=== PATIENT | female | born 1960 | race African-American/Black ===

== ENCOUNTER → 2016-09-05 20:03 | Outpatient (CLI) | payer OTHER | END | disposition home or self-care (01) | LOC: D.SLEEP 20:00 | DX: G47.33 Obstructive sleep apnea (adult) (pediatric) (principal) ==

== ENCOUNTER → 2016-09-18 19:58 | Outpatient (CLI) | payer OTHER | END | disposition home or self-care (01) | LOC: D.SLEEP 19:58 | DX: G47.33 Obstructive sleep apnea (adult) (pediatric) (principal) ==

== ENCOUNTER 2016-09-20 21:22 | Emergency (ER) | payer OTHER | END 2016-09-20 22:55 | disposition home or self-care (01) | LOC: D.ER 21:22 | DX: T78.3XXA Angioneurotic edema, initial encounter (principal); I10 Essential (primary) hypertension; N83.9 Noninflammatory disorder of ovary, fallopian tube and broad ligament, unspecified ==

== ENCOUNTER → 2017-09-25 12:48 | Outpatient (CLI) | payer OTHER | END | disposition home or self-care (01) | LOC: D.RAD 12:48 | DX: Z02.71 Encounter for disability determination (principal) ==

== ENCOUNTER 2017-12-20 15:42 | Emergency (ER) | payer MEDICAID, OTHER ==
[2017-12-20 16:34] LABS: BASOPHILS 0 % (0-2); EOSINOPHILS 0.1 % (0-7); HEMATOCRIT 40.4 % (36.0-48.0); HEMOGLOBIN 13.6 g/dL (12-16); IMMATURE GRANULOCYTES 0.3 % (0-5); LYMPHOCYTES 5.7 % (15-50); MCH 28.3 pg (26.0-34.0); MCHC 33.7 g/dL (31.0-37.0); MEAN PLATELET VOLUME 11.6 fL (7.4-10.4); MONOCYTES 5.4 % (2-11); NEUTROPHILS 88.5 % (40-80); PLATELET COUNT 178 10x3/uL (130-400); RBC 4.81 10x6/uL (4.00-5.40); RDW 14.1 % (11.5-14.5); WBC 7.4 10x3/uL (4.8-10.8)
[2017-12-20 16:46] LABS: APPEARANCE CLEAR (CLEAR); COLOR YELLOW (YELLOW)
[2017-12-20 16:47] LABS: BILIRUBIN 2+ (NEGATIVE); GLUCOSE NEGATIVE (NEGATIVE); KETONE NEGATIVE (NEGATIVE); NITRITE NEGATIVE (NEGATIVE); PROTEIN NEGATIVE (NEGATIVE); SPECIFIC GRAVITY 1.005 (1.005-1.020); UROBILINOGEN NORMAL (NORMAL)
[2017-12-20 16:49] LABS: WHITE CELLS - URINE OCC /hpf (0-5)
[2017-12-20 16:52] LABS: RED CELLS - URINE 0-5 /hpf (0-5)
[2017-12-20 16:55] LABS: ALBUMIN 3.2 g/dL (3.4-5.0); ANION GAP 9.8 mmol/L (8-16); BACTERIA FEW /hpf (NONE SEEN); BILIRUBIN - TOTAL 0.24 mg/dL (0.2-1.3); CALCIUM 8.9 mg/dL (8.5-10.1); CARBON DIOXIDE 32.7 mmol/L (21.0-32.0); POTASSIUM - SERUM 3.5 mmol/L (3.5-5.1); PROTEIN - SERUM 7.9 g/dL (6.4-8.2)
== END 2017-12-20 18:43 | disposition home or self-care (01) ==
LOC: D.ER 15:42
PROVIDERS: Emergency Medicine
DX: A08.4 Viral intestinal infection, unspecified (principal); I10 Essential (primary) hypertension

== ENCOUNTER 2018-03-14 14:29 | Emergency (ER) | payer OTHER ==
[~2018-03-14] VITALS: Ht 162.6 cm; Wt 112.7 kg
[2018-03-14 14:52] VITALS: Ht 162.6 cm; Wt 112.7 kg
[2018-03-14] MEDS ORDERED: GLUCOPHAGE500 MG PO (14:55)
[2018-03-14] MEDS ORDERED: HYDROCHLOROTHIA25 MG PO (14:56)
[2018-03-14] MEDS ORDERED: NIFEDIPINE ER30 MG PO (14:56)
[2018-03-14] MEDS ORDERED: ESTRACE2 MG PO (14:56)
[2018-03-14] MEDS ORDERED: NEURONTIN 300300 MG PO (14:57)
[2018-03-14] MEDS ORDERED: PROTONIX40 MG PO (14:57)
[2018-03-14] MEDS ORDERED: ASPIRIN81 MG PO (14:57)
[2018-03-14] MEDS ORDERED: NITROSTAT0.4 MG SL (14:58)
[2018-03-14] MEDS ORDERED: ZYLOPRIM100 MG PO (15:00)
[2018-03-14] MEDS ORDERED: MOBIC7.5 MG PO (15:00)
[2018-03-14] MEDS ORDERED: MYRBETRIQ50 MG PO (15:00)
[2018-03-14] MEDS ORDERED: POTASSIUM CHLO20 MEQ PO (15:01)
[2018-03-14 16:00] LABS: BASOPHILS 0.2 % (0-2); EOSINOPHILS 1.2 % (0-7); HEMATOCRIT 39.7 % (36.0-48.0); HEMOGLOBIN 13.1 g/dL (12-16); IMMATURE GRANULOCYTES 0.3 % (0-5); LYMPHOCYTES 34.7 % (15-50); MCH 27.7 pg (26.0-34.0); MCV 83.9 fL (80.0-100.0); MEAN PLATELET VOLUME 11.7 fL (7.4-10.4); MONOCYTES 10.1 % (2-11); NEUTROPHILS 53.5 % (40-80); PLATELET COUNT 205 10x3/uL (130-400); RBC 4.73 10x6/uL (4.00-5.40); RDW 14.6 % (11.5-14.5); WBC 5.8 10x3/uL (4.8-10.8)
[2018-03-14 16:10] LABS: ALBUMIN 3.4 g/dL (3.4-5.0); ALKALINE PHOSPHATASE 74 U/L (46-116); ALT (SGPT) 16 U/L (10-68); BILIRUBIN - TOTAL 0.24 mg/dL (0.2-1.3); CALC OSMOLALITY 282 mosm/kg (275-300); CALCIUM 8.9 mg/dL (8.5-10.1); CARBON DIOXIDE 30.3 mmol/L (21.0-32.0); CHLORIDE - SERUM 103 mmol/L (98-107); CREATININE - SERUM 0.9 mg/dL (0.6-1.3); GLUCOSE 92 mg/dL (74-106); POTASSIUM - SERUM 3.4 mmol/L (3.5-5.1); PROTEIN - SERUM 8.1 g/dL (6.4-8.2); SODIUM 142 mmol/L (136-145); UREA NITROGEN 12 mg/dL (7-18); eGFR NON AFRICAN AMERICAN 69 mL/min (90-120)
[2018-03-14 16:24] LABS: CKMB 0.6 U/L (0.0-3.6); TROPONIN-I < 0.017 ng/mL (0.000-0.060)
[2018-03-15 00:20] VITALS: BP 150/96
== END 2018-03-15 00:20 | disposition other institution (70) ==
LOC: D.ER 14:29
PROVIDERS: Family Medicine
DX: R06.09 Other forms of dyspnea (principal); R07.9 Chest pain, unspecified; E11.9 Type 2 diabetes mellitus without complications; I10 Essential (primary) hypertension

== ENCOUNTER 2019-03-28 19:59 | Emergency (ER) | payer OTHER ==
[~2019-03-28] VITALS: Ht 162.6 cm; Wt 104.5 kg
[~2019-03-28 19:59] MED LIST: ASPIRIN81 MG PO; ESTRACE2 MG PO; GLUCOPHAGE500 MG PO; HYDROCHLOROTHIA25 MG PO; MOBIC7.5 MG PO; MYRBETRIQ50 MG PO; NEURONTIN 300300 MG PO; NIFEDIPINE ER30 MG PO; NITROSTAT0.4 MG SL; POTASSIUM CHLO20 MEQ PO; PROTONIX40 MG PO; ZYLOPRIM100 MG PO
[2019-03-28 20:04] VITALS: BP 116/73; Ht 162.6 cm; Wt 104.5 kg
[2019-03-28] MEDS ORDERED: ZOLOFT50 MG PO (20:06)
[2019-03-28] MEDS ORDERED: ULTRAM50 MG PO (20:33)
== END 2019-03-28 21:00 | disposition home or self-care (01) ==
LOC: D.ER 19:59
DX: S93.602A Unspecified sprain of left foot, initial encounter (principal); W10.9XXA Fall (on) (from) unspecified stairs and steps, initial encounter; Y93.89 Activity, other specified; Y92.89 Other specified places as the place of occurrence of the external cause

== ENCOUNTER 2019-08-03 22:16 | Emergency (ER) | payer OTHER ==
[~2019-08-03] VITALS: Ht 162.6 cm; Wt 111.4 kg
[~2019-08-03 22:16] MED LIST changes: +ULTRAM50 MG PO; +ZOLOFT50 MG PO
[2019-08-03 22:32] VITALS: Ht 162.6 cm; Wt 111.4 kg
[2019-08-03] MEDS ORDERED: CITRACAL + D E1 EACH PO (22:36)
[2019-08-04] MEDS ORDERED: BUTALB-APAP-CA1 EACH PO (00:28)
[2019-08-04 01:10] VITALS: BP 167/94
== END 2019-08-04 01:10 | disposition home or self-care (01) ==
LOC: D.ER 22:16
DX: G43.909 Migraine, unspecified, not intractable, without status migrainosus (principal); R11.2 Nausea with vomiting, unspecified; E11.9 Type 2 diabetes mellitus without complications; Z79.84 Long term (current) use of oral hypoglycemic drugs; I10 Essential (primary) hypertension; K21.9 Gastro-esophageal reflux disease without esophagitis

== ENCOUNTER 2019-08-17 17:16 | Emergency (ER) | payer OTHER ==
[~2019-08-17] VITALS: Ht 162.6 cm; Wt 111.4 kg
[~2019-08-17 17:16] MED LIST changes: +BUTALB-APAP-CA1 EACH PO; +CITRACAL + D E1 EACH PO
[2019-08-17 17:17] VITALS: Ht 162.6 cm; Wt 111.4 kg
[2019-08-17] MEDS ORDERED: BUTALB-APAP-CA1 EACH PO (19:53)
[2019-08-17] MEDS ORDERED: SUMATRIPTAN SUC25 MG PO (19:53)
[2019-08-17] MEDS ORDERED: ZOFRAN4 MG PO (19:53)
[2019-08-17 21:12] VITALS: BP 137/81
== END 2019-08-17 21:12 | disposition home or self-care (01) ==
LOC: D.ER 17:16
DX: G43.909 Migraine, unspecified, not intractable, without status migrainosus (principal); R11.2 Nausea with vomiting, unspecified; E11.9 Type 2 diabetes mellitus without complications; I10 Essential (primary) hypertension; Z79.84 Long term (current) use of oral hypoglycemic drugs

== ENCOUNTER 2019-11-30 20:47 | Emergency (ER) | payer OTHER ==
[~2019-11-30] VITALS: Ht 162.6 cm; Wt 111.4 kg
[~2019-11-30 20:47] MED LIST changes: +SUMATRIPTAN SUC25 MG PO; +ZOFRAN4 MG PO
[2019-11-30 21:02] VITALS: Ht 162.6 cm; Wt 111.4 kg
[2019-11-30] MEDS ORDERED: HYDROCODON-ACE1 EAC7 PO (22:46)
[2019-12-01] VITALS: BP 125/78
== END 2019-12-01 | disposition home or self-care (01) ==
LOC: D.ER 20:47
DX: Z89.012 Acquired absence of left thumb (principal); S61.412A Laceration without foreign body of left hand, initial encounter; E11.9 Type 2 diabetes mellitus without complications; I10 Essential (primary) hypertension; K21.9 Gastro-esophageal reflux disease without esophagitis; Z79.84 Long term (current) use of oral hypoglycemic drugs